=== PATIENT | male | born 1985 | race Two or more races ===

== ENCOUNTER 2022-08-04 13:25 | Inpatient (IN) | payer BC ==
[~2022-08-04] VITALS: Ht 182.9 cm; Wt 163.3 kg
[2022-08-04] MEDS ORDERED: COZAAR100 MG PO (13:49)
== END 2022-08-15 16:57 | disposition left against medical advice (07) | DRG 439 ==
LOC: ER 13:25 → ICU 20:43 → MEDI 08-13 21:04
PROVIDERS: ADMIT Internal Medicine; ATTEND Internal Medicine
PROC: B24BZZZ Ultrasonography of Heart with Aorta (ICD-10-PCS; principal; 2022-08-04)
PROC: BW21YZZ Computerized Tomography (CT Scan) of Abdomen and Pelvis using Other Contrast (ICD-10-PCS; 2022-08-04)
PROC: 02HV33Z Insertion of Infusion Device into Superior Vena Cava, Percutaneous Approach (ICD-10-PCS; 2022-08-05)
PROC: BW21YZZ Computerized Tomography (CT Scan) of Abdomen and Pelvis using Other Contrast (ICD-10-PCS; 2022-08-07)
PROC: BW21YZZ Computerized Tomography (CT Scan) of Abdomen and Pelvis using Other Contrast (ICD-10-PCS; 2022-08-11)
PROC: 4A12X4Z Monitoring of Cardiac Electrical Activity, External Approach (ICD-10-PCS; 2022-08-13)
DX: K85.20 Alcohol induced acute pancreatitis without necrosis or infection (principal); K56.0 Paralytic ileus; R65.10 Systemic inflammatory response syndrome (SIRS) of non-infectious origin without acute organ dysfunction; E66.01 Morbid (severe) obesity due to excess calories; E53.8 Deficiency of other specified B group vitamins; E61.1 Iron deficiency; E87.6 Hypokalemia; D69.6 Thrombocytopenia, unspecified; D64.9 Anemia, unspecified; D56.3 Thalassemia minor; F10.20 Alcohol dependence, uncomplicated; I10 Essential (primary) hypertension; Z20.822 Contact with and (suspected) exposure to COVID-19